=== PATIENT | male | born 2000 | race Caucasian/White ===

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

== ENCOUNTER → 2021-10-20 | Outpatient (CLI) | payer BC ==
[~2021-10-20] MED LIST: LODINE CAP 300300 MG PO
[2021-10-20 15:59] LABS: BUN/CREATININE RATIO 16 (0-10)
== END ==
LOC: LAB 14:56
PROVIDERS: Colon & Rectal Surgery
DX: I10 Essential (primary) hypertension (principal)
CPT/HCPCS: 36415; 80048; 93005